=== PATIENT | female | born 1970 | race Caucasian/White ===

== ENCOUNTER 2019-03-11 13:25 | Outpatient (CLI) | payer BC ==
--- NOTE | 2019-03-11 13:40 | RAD ---
XR Chest Pa Lat STANDARD HISTORY: Atypical chest pain COMPARISON: None FINDINGS: The heart size is normal. The lungs are well expanded without focal areas of consolidation, pneumothorax or pleural effusions. IMPRESSION: No radiographic evidence of acute cardiopulmonary process.
== END 2019-03-11 13:26 | disposition home or self-care (01) ==
LOC: SCSRAD 13:25
PROVIDERS: ATTEND Internal Medicine
DX: R07.89 Other chest pain (principal)
CPT/HCPCS: 71046

== ENCOUNTER 2022-12-18 07:30 | Day surgery (SDC) | payer BC ==
[2022-12-16 16:23] VITALS: BMI 31.4
[2022-12-18] MEDS ORDERED: fentaNYL PF 100 MCG/2 ML SYRINGE ONE (07:42)
[2022-12-18] MEDS ORDERED: Famotidine/PF 20 mg/2ml Vial ONE (07:42)
[2022-12-18] MEDS ORDERED: Phenylephrine 2.5% Ophth Soln 5 ML BOT ONE (07:52)
[2022-12-18] MEDS ORDERED: Cyclopentolate 1% Opth Drop 2 ML BOT ONE (07:52)
[2022-12-18] MEDS ORDERED: Scopolamine 1.5 mg/72 hour Patch ONE (08:10)
[2022-12-18] MEDS ORDERED: Maxitrol 0.1% Opth Oint 3.5 GM TUBE ONE (10:04)
[2022-12-18] MEDS ORDERED: Dexamethasone 20 MG/5 ML VIAL ONE (10:04)
[2022-12-18] MEDS ORDERED: PHENYLEPHRINE-NS 100 MCG/ML 10 ML SYRINGE ONE (10:04)
[2022-12-18] MEDS ORDERED: Bupivacaine 0.75% 10 ML VIAL ONE (10:04)
[2022-12-18] MEDS ORDERED: PROPOFOL 200 MG/20 ML VIAL ONE (10:04)
[2022-12-18] MEDS ORDERED: Triamcinolone 40 MG/ML VIAL ONE (10:04)
[2022-12-18] MEDS ORDERED: diphenhydrAMINE 50 MG/ML VIAL ONE (10:04)
[2022-12-18] MEDS ORDERED: Lidocaine 1% PF 5 ML VIAL ONE (10:04)
[2022-12-18] MEDS ORDERED: Lidocaine 4% PF 5 ML AMP ONE (10:04)
[2022-12-18] MEDS ORDERED: Fentanyl 100 MCG/2 ML VIAL ONE (12:30)
[2022-12-18] MEDS ORDERED: Ondansetron ODT 4 MG TAB ONE (13:54)
== END 2022-12-18 14:05 | disposition home or self-care (01) ==
LOC: SDC 07:30
PROVIDERS: ATTEND Ophthalmology Retina Specialist
PROC: 08U13JZ Supplement of Left Eye with Synthetic Substitute, Percutaneous Approach (ICD-10-PCS; principal; 2022-12-18)
DX: H33.022 Retinal detachment with multiple breaks, left eye (principal); I10 Essential (primary) hypertension; E66.9 Obesity, unspecified; Z68.31 Body mass index [BMI] 31.0-31.9, adult; Z87.891 Personal history of nicotine dependence; Z79.899 Other long term (current) drug therapy; Z88.0 Allergy status to penicillin; Z88.1 Allergy status to other antibiotic agents; Z91.048 Other nonmedicinal substance allergy status
CPT/HCPCS: C1776; J1100; J1200; J2704; J3010; J3301; J3490; Q0162; S0028